=== PATIENT | female | born 1965 | race Caucasian/White ===

== ENCOUNTER 2016-07-23 08:24 | Observation (INO) | payer OTHER ==
[~2016-07-23] VITALS: Ht 170.2 cm; Wt 83.1 kg
[~2016-07-23 08:24] MED LIST: AMPY10TA PO; ATOR20TA15 PO; BIOT50005 PO; CALCTAB94 PO; CYAN1TAB24 PO; LEVO-168 PO; NITR100C4 PO; NITR1CAP36 PO; OMEG5CAP PO; PARO37.5 PO; TEMA15CA PO; TERI14TA PO; TOLT1TAB16 PO; TOPI1TAB97 PO; VITA400C70 PO
[2016-07-23] MEDS ORDERED: CHLORHEXIDINE GLUCONATE 2 % 1 PACK (2 CLOTHS) TOPICAL PRN (09:00)
[2016-07-23] MEDS ORDERED: METOPROLOL TARTRATE 25 MG TAB PO PRN (09:00)
[2016-07-23] MEDS ORDERED: POVIDONE IODINE 5% (ANTISEPSIS KIT) 4 APPLICATIONS EACH NARE PRN (09:00)
[2016-07-23] MEDS ORDERED: SODIUM CHLORID 0.9% 500 ML IV PRN (09:00)
[2016-07-23] MEDS ORDERED: INSULIN HUMAN REGULAR 1,000 UNITS/10 ML VIAL SQ PRN (09:00)
[2016-07-23 09:13] VITALS: BP 134/83; PULSE 62; RESP 20; TEMP 98; O2SAT 100
[2016-07-23] MEDS: LACTATED RINGER'S 1000 ML IV PRN ×2 (09:20→15:44)
[2016-07-23 09:41] LABS: AUTOMATED NEUTROPHIL # 1.5 TH/MM3 (1.8-7.7); EOSINOPHIL # 0.1 TH/MM3 (0-0.4); EOSINOPHIL % 4.6 % (0.0-4.0); HEMATOCRIT 39.8 % (35.0-46.0); HEMO FLAGS DIFF FINAL; LYMPH % 30.1 % (9.0-44.0); LYMPHOCYTE # 0.8 TH/MM3 (1.0-4.8); MEAN CELL VOLUME 93.1 FL (80.0-100.0); MEAN CORPUSCULAR HEMOGLOBIN 31.7 PG (27.0-34.0); MONO % 9.1 % (0.0-8.0); NEUT % 55.2 % (16.0-70.0); PLATELET COUNT 108 TH/MM3 (150-450); RED BLOOD COUNT 4.28 MIL/MM3 (4.00-5.30); RED CELL DISTRIBUTION WIDTH 13.4 % (11.6-17.2); WHITE BLOOD COUNT 2.8 TH/MM3 (4.0-11.0)
[2016-07-23] MEDS ORDERED: ceFAZolin 2 GM PREMIX 50 ML ONE (09:47)
[2016-07-23] MEDS: ceFAZolin 2 GM PREMIX 50 ML IV SCH ×2 (09:50→15:45)
[2016-07-23] MEDS ORDERED: SODIUM CHLORIDE FLUSH PRN IV FLUSH (10:00)
[2016-07-23] MEDS ORDERED: HEPARIN SODIUM - SQ 10,000 UNITS/ML VIAL SQ SCH (10:00)
[2016-07-23] MEDS ORDERED: HYDROmorphone HCL PF 2 MG/ML VIAL ONE (10:54)
[2016-07-23] MEDS ORDERED: fentaNYL CITRATE 250 MCG/5 ML AMP ONE (10:54)
[2016-07-23] MEDS ORDERED: ACETAMINOPHEN 1000 MG/100 ML VIAL IV ONE (10:54)
[2016-07-23] MEDS ORDERED: MIDAZOLAM HCL 2 MG/2 ML VIAL ONE (10:55)
[2016-07-23] MEDS ORDERED: NORMOSOL R INJ 2,000 ML IV ONE (12:00)
[2016-07-23] MEDS ORDERED: SUGAMMADEX SODIUM 200 MG/2 ML VIAL IV PUSH ONE ×2 (12:00)
[2016-07-23] MEDS ORDERED: PROPOFOL 200 MG/20 ML AMP IV ONE (12:00)
[2016-07-23] MEDS ORDERED: LACTATED RINGER'S 1000 ML INJ 1,000 ML IV ONE (12:00)
[2016-07-23] MEDS ORDERED: ONDANSETRON HCL 4 MG/2 ML VIAL IV PUSH ONE (12:00)
[2016-07-23] MEDS ORDERED: LIDOCAINE HCL 1% 20 ML VIAL INFIL ONE (12:30)
[2016-07-23] MEDS ORDERED: METHYLENE BLUE 10 MG/ML VIAL OTHER ONE (13:39)
[2016-07-23] MEDS ORDERED: diphenhydrAMINE HCL 25 MG CAP PO PRN (14:45)
[2016-07-23] MEDS ORDERED: SODIUM CHLORIDE 0.9% FLUSH 10 ML FLUSH IV FLUSH PRN (14:45)
[2016-07-23] MEDS ORDERED: LORazepam 0.5 MG TAB PO PRN (14:45)
[2016-07-23] MEDS ORDERED: TEMAZEPAM 15 MG CAP PO PRN (14:45)
[2016-07-23] MEDS ORDERED: ONDANSETRON HCL 4 MG/2 ML VIAL IVP PRN (14:45)
[2016-07-23] MEDS ORDERED: oxyCODONE/ACETAMINOPHEN 5 MG/325 MG TAB PO PRN ×2 (14:45)
[2016-07-23] MEDS ORDERED: DO NOT ADM ANY ANTICOAGULANT DRUGS PRN (14:52)
[2016-07-23] MEDS: D5-1/2 NS + KCL 20 MEQ INJ 1,000 ML IV SCH ×2 (15:20→23:30)
[2016-07-23] MEDS: KETOROLAC TROMETHAMINE 30 MG/ML (IVP) VIAL IVP SCH ×2 (15:45→21:13)
[2016-07-23 18:40] VITALS: BP 128/81; PULSE 76; RESP 20; TEMP 97.6; O2SAT 99
[2016-07-23 20:00] VITALS: BP 117/81; PULSE 92; RESP 18; TEMP 97; O2SAT 96
[2016-07-23] MEDS ORDERED: AMPYRA 10 MG PO SCH (21:00)
[2016-07-23] MEDS ORDERED: TOPIRAMATE 25 MG TAB PO SCH (21:00)
[2016-07-23] MEDS ORDERED: DALFAMPRIDINE 10 MG PO SCH (21:00)
[2016-07-23] MEDS ORDERED: ATORVASTATIN 20 MG TAB PO SCH (21:00)
[2016-07-23] MEDS: SODIUM CHLORIDE 0.9% FLUSH 10 ML FLUSH IV FLUSH SCH (21:14)
[2016-07-24] VITALS: BP 100/65; PULSE 76; RESP 18; TEMP 96.7; O2SAT 98
[2016-07-24] MEDS: KETOROLAC TROMETHAMINE 30 MG/ML (IVP) VIAL IVP SCH (03:53)
[2016-07-24 04:00] VITALS: BP 112/66; PULSE 76; RESP 18; TEMP 96.3; O2SAT 95
[2016-07-24] MEDS ORDERED: LEVOTHYROXINE SODIUM 112 MCG TAB PO SCH (06:00)
[2016-07-24] MEDS ORDERED: OXYC1TAB63 PO (06:57)
[2016-07-24 06:58] LABS: AUTOMATED NEUTROPHIL # 3.1 TH/MM3 (1.8-7.7); BASOPHIL % 0.4 % (0.0-2.0); EOSINOPHIL # 0.1 TH/MM3 (0-0.4); EOSINOPHIL % 1.9 % (0.0-4.0); HEMATOCRIT 36.4 % (35.0-46.0); HEMO FLAGS DIFF FINAL; LYMPH % 18.9 % (9.0-44.0); LYMPHOCYTE # 0.8 TH/MM3 (1.0-4.8); MEAN CELL VOLUME 92.5 FL (80.0-100.0); MEAN CORPUSCULAR HEMOGLOBIN 31.7 PG (27.0-34.0); MEAN CORPUSCULAR HGB CONC 34.3 % (32.0-36.0); MONO % 9.5 % (0.0-8.0); NEUT % 69.3 % (16.0-70.0); PLATELET COUNT 105 TH/MM3 (150-450); RED BLOOD COUNT 3.93 MIL/MM3 (4.00-5.30); RED CELL DISTRIBUTION WIDTH 13.5 % (11.6-17.2); WHITE BLOOD COUNT 4.5 TH/MM3 (4.0-11.0)
[2016-07-24 07:24] LABS: BICARBONATE 21.5 MEQ/L (21.0-32.0); POTASSIUM 3.8 MEQ/L (3.5-5.1)
[2016-07-24 08:00] VITALS: BP 112/75; PULSE 76; RESP 18; TEMP 96.5; O2SAT 100
[2016-07-24] MEDS: SODIUM CHLORIDE 0.9% FLUSH 10 ML FLUSH IV FLUSH SCH (08:34)
[2016-07-24] MEDS ORDERED: AUBAGIO 14 MG PO SCH (09:00)
[2016-07-24] MEDS ORDERED: NITROFURANTOIN MONOHYD MACROCR 100 MG CAP PO SCH (09:00)
[2016-07-24] MEDS ORDERED: TERIFLUNOMIDE 14 MG PO SCH (09:00)
[2016-07-24] MEDS ORDERED: TOLTERODINE TARTRATE 4 MG CAP LA PO SCH (09:00)
[2016-07-24] MEDS ORDERED: PARoxetine HCL 37.5 MG CONTROLLED RELEASE TAB PO SCH (09:00)
[2016-07-24] MEDS ORDERED: ROUNMIS (09:46)
--- NOTE | 2016-07-28 23:08 | MP ---
cc: CARMELO ARECHIGA KELLY L. MD DATE OF SURGERY: 07/23/2016 PREOPERATIVE DIAGNOSIS: Adenocarcinoma in situ of the cervix. POSTOPERATIVE DIAGNOSIS Adenocarcinoma in situ of the cervix. PROCEDURE Robotic-assisted laparoscopic hysterectomy, bilateral salpingo-oophorectomy. SURGEON Madison Valera MD. SUPERVISOR [employer]ING [place] financial assistant. ANESTHESIA General endotracheal anesthesia ESTIMATED BLOOD LOSS 300 cc IV FLUIDS 2100 cc URINE OUTPUT 500 cc HISTORY The patient is a 51-year-old female with recurrent abnormal Pap smears, has had previous conization of the cervix. Most recent conization showed adenocarcinoma in situ. There were positive margins at the apex of the cone, there was no invasive disease. Endocervical curetting and endometrial curetting proximal to the apex of the cone showed benign tissue. These outside slides were read by our pathologist who concurred with these findings. She has been counseled regarding options and presents now for definitive surgical management. FINDINGS: The uterine cavity sounds to 7.5 cm. She has healed well from prior procedures. It is noted that her preoperative platelet count is approximately 100,000, her white count is low at 2.3 and there is some generalized oozing during her surgical case. Overall estimated blood loss was 300 cc, just a tendency to ooze at various sites, possibly related to her underlying MS and/or the medications she takes for this condition. Additionally in findings there is no overt evidence of metastatic disease. There is no adenopathy. There was no grossly visible or palpable disease remaining in the cervix. No nodularity. The peritoneal surfaces were smooth. PROCEDURE The patient taken to the operating room, placed in dorsal lithotomy position. After general endotracheal anesthesia was administered time-out was undertaken. The patient was identified by sight, recognition and hospital ID bracelet and the proposed procedure was reviewed and confirmed. She was carefully positioned in padded Berhane stirrups, arms were padded and secured to the sides. She was further secured to the operating table with egg crate padding, tape, in across chest over the shoulder fashion. All sites noted to be properly aligned with no malalignments or pressure points. She was prepped in sterile fashion, draped below the waist, placed in high lithotomy position. The cervix was grasped. Uterine cavity sounded. The cervix dilated. Standard VCare manipulator inserted and secured in the usual fashion. Morton catheter placed in the bladder and she was returned to lithotomy position. Change of sterile gloves was undertaken as we completed draping in anticipation of laparoscopy and confirmed that an orogastric airway was in the stomach on suction. With manual elevation of the abdominal wall, under direct laparoscopic visualization 5 mm cannula placed in the left upper quadrant, atraumatic entry was confirmed. Carbon dioxide gas was used to insufflate, 12 mm cannula placed in midline above the umbilicus, 8 mm cannula in the right upper abdomen left lateral abdomen. She was placed in steep Trendelenburg position. Anatomy was surveyed with findings as described above. Small bowel folded back on mesenteric root, three Ray-César sponges placed around the root of the small bowel mesentery, robotic system brought into the operative field, attached in the usual fashion. Monopolar scissors, fenestrated bipolar forceps Prograsp manipulators placed in arms #1, 2 and 3 respectively. I took my place at the surgeon's console. The right round ligament isolated, cauterized, transected. Anterior and posterior leafs of the broad ligament were opened. The right ureter identified. The right infundibulopelvic ligament isolated, cauterized and transected. Posterior peritoneum opened along the right side of the uterus and cervix and the right vesicouterine peritoneum was dissected off the lower uterine segment and cervix. The right uterine vessels were skeletonized, cauterized and transected as were the cardinal, paracervical and uterosacral ligaments. Attention was directed toward the left side. Adhesions were taken down to mobilize the colon which was somewhat adherent to the left pelvic sidewall. The left round ligament was isolated, cauterized, transected. The anterior and posterior leafs of the broad ligament were opened. The left ureter was identified. The left infundibulopelvic ligament was isolated to the level of the pelvic brim where it was cauterized and transected. Posterior peritoneum was opened along the left side of the uterus and cervix. The left vesicouterine peritoneum was dissected off the lower uterine segment and cervix. The left uterine vessels were skeletonized, cauterized, transected as were the cardinal, paracervical and uterosacral ligaments. Circumferential colpotomy was performed. Following the cap of the VCare manipulator, the specimen was withdrawn transvaginally which included uterus, cervix, tubes and ovaries and a pneumo-occluder balloon was placed in the vagina to maintain pneumoperitoneum. Instruments one and three exchanged for needle drivers as a 0 Vicryl suture was introduced. The vaginal cuff was closed starting at the left corner, full-thickness closure including the posterior peritoneum and edge of the uterosacral ligament tied via instrument tie. The suture was held on continuous traction as a running continuous full-thickness closure was carried across the vaginal cuff to the contralateral corner where similarly fixed and secured tied via instrument tie. The needle was cut and removed. The pelvis was thoroughly irrigated. Mild bleeders rendered hemostatic with bipolar cautery. The bladder was filled with saline dye with methylene blue. The bladder distended nicely under pressure. There were no defects or weak spots in the bladder. There was a good margin between the bladder edge and the vaginal cuff suture line. Good peristalsis of ureters bilaterally and the bladder was drained. To assist in continued hemostasis, hemostatic Eric powder was placed across the vaginal cuff and lateral pelvic sidewalls. Robotic instruments were removed. The robotic system was disengaged from the operative field. I reentered the bedside under sterile condition. Each of the three Ray-César sponges that had been placed were each removed laparoscopically. There were each inspected and noted to be removed in their entirety. There were no remaining foreign objects in the peritoneal cavity. Preliminary counts were correct. The 12 mm fascial defect closed with interrupted 0 Vicryl sutures using needle pass apparatus. They were tied securely which rendered the fascia completely air tight and hemostatic. The remaining cannulas were withdrawn. Carbon dioxide gas was removed from the peritoneum, 3-0 Vicryl subcutaneous, 3-0 Vicryl subcuticular and Steri-Strips used to close these incisions. She was returned to dorsal lithotomy position. Pelvic exam confirmed the vaginal cuff was well supported hemostatic. No vaginal lacerations. No remaining foreign objects in the vagina. Final counts were correct. She was returned to dorsal supine position and was pending reversal of anesthesia when I left the operating room to precede her to the Post Anesthesia Care Unit and to speak to family member who was waiting in the surgical waiting area. MD BE Sherman/ALISON /7:10 AM /10:51 PM
--- NOTE | 2016-07-30 09:24 | MD ---
cc: MONTY BENDER KELLY L. MD ADMISSION DATE: 07/23/2016 DISCHARGE DATE: 07/24/2016 PROCEDURE 07/23/2016, robotic-assisted laparoscopic hysterectomy bilateral salpingo-oophorectomy. DIAGNOSIS Cervical adenocarcinoma in situ. HOSPITAL COURSE She did well during the first 24 hours after surgery, remained afebrile, tolerating oral intake, adequate pain control and was progressing in the postop period. OBJECTIVE In's and out's 2190/1400. LABS Pending at the time of this dictation. PHYSICAL EXAMINATION Afebrile, pulse 76-92, respirations 16-20, blood pressure 100-130/65-87, O2 saturations greater than equal to 96% while awake. GENERAL: Alert and oriented x3 in no acute distress. LUNGS: Clear except for mild basilar rales. CARDIOVASCULAR: Regular rate and rhythm. ABDOMEN: Soft. Incision is clean and dry. GENERATOR MAN: No bleeding. EXTREMITIES: Nontender. No palpable cords, unchanged from baseline. ASSESSMENT Postop day #1 doing well in early postoperative period. Preliminary findings at surgery were reviewed. Activities and restrictions discussed. Questions were answered. She expressed a good understanding. PLAN Anticipate discharge to home today. She is to resume her prior medications. A prescription for Percocet for pain. Our office number is again made available. She is contact us should she have any questions or problems between now the time of scheduled followup. She is to call to ensure she has an appointment set up in two weeks. MD BE Sherman/CM /7:01 AM /9:14 AM
== END 2016-07-24 11:03 | disposition home or self-care (01) ==
LOC: HSDC 08:24 → HSDI 14:37 → HOCA 17:48
PROVIDERS: ADMIT Obstetrics & Gynecology Gynecologic Oncology; ATTEND Obstetrics & Gynecology Gynecologic Oncology
DX: D06.9 Carcinoma in situ of cervix, unspecified (principal); D25.9 Leiomyoma of uterus, unspecified; N83.8 Other noninflammatory disorders of ovary, fallopian tube and broad ligament; E78.5 Hyperlipidemia, unspecified; E03.9 Hypothyroidism, unspecified; G35 Multiple sclerosis
CPT/HCPCS: 00840; 58571; 80048; 85025; 86850; 86900; 86901; 88309; 94150; G0378; J0131; J0690; J1170; J1885; J2250; J2405; J3010; J3480; J7120; 88307